=== PATIENT | female | born 1950 | race Native Hawaiian/Other Pacific Islander ===

== ENCOUNTER 2024-07-31 09:56 | Inpatient (IN) | payer OTHER ==
[~2024-07-31] VITALS: Ht 160 cm; Wt 74.0 kg
[2024-07-31 10:26] LABS: BASOPHILS % (AUTO) 0.7 % (0.0-2.0); EOSINOPHILS % (AUTO) 2.5 % (1.0-6.0); HEMATOCRIT 42.4 % (36-46); HEMOGLOBIN 13.3 g/dL (12.0-16.0); LYMPHOCYTES # (AUTO) 1.8 K/uL (1.0-4.8); LYMPHOCYTES % (AUTO) 32.9 % (22.0-44.0); MEAN CORPUSCULAR HEMOGLOBIN 25.6 pg (26.0-34.0); MEAN CORPUSCULAR HGB CONC 31.4 G/dL (31.0-37.0); MEAN CORPUSCULAR VOLUME 82 fL (80-100); MONOCYTES # (AUTO) 0.3 K/uL (0.1-1.0); MONOCYTES % (AUTO) 6.2 % (2.0-9.0); NEUTROPHILS # (AUTO) 3.1 K/uL (1.8-7.7); NEUTROPHILS % (AUTO) 57.7 % (40.0-70.0); PLATELET COUNT (AUTO) 203 K/uL (150-450); RED CELL DISTRIBUTION WIDTH 14.8 % (11.5-14.5); WHITE BLOOD COUNT (AUTO) 5.3 K/uL (4.5-11.0)
[2024-07-31 10:33] LABS: ANION GAP 9 mmol/L (8-16); CARBON DIOXIDE 24 mmol/L (22-29); CHLORIDE 102 mmol/L (98-107); CREATININE 1.31 mg/dL (0.60-1.30); GLOMERULAR FILTR. RATE CALC 39 mL/min (>60); GLUCOSE,RANDOM 362 mg/dL (70-110); POTASSIUM 4.6 mmol/L (3.5-5.1); SODIUM SERUM 135 mmol/L (136-145); UREA NITROGEN, BLOOD 21 mg/dL (7-18)
[2024-07-31] MEDS: ASPIRIN 325 MG TABLET PO ONE (10:39)
[2024-07-31] MEDS: CLOPIDOGREL BISULFATE 75 MG TABLET PO ONE (10:39)
[2024-07-31 10:42] LABS: ALANINE AMINOTRANSFERASE 22 U/L (12-78); ALBUMIN 3.2 g/dL (3.4-5.0); ALKALINE PHOSPHATASE 67 U/L (46-116); ASPARTATE AMINOTRANSFERASE 19 U/L (15-37); BILIRUBIN,TOTAL 0.5 mg/dL (0.1-1.0); TOTAL PROTEIN, SERUM 7.1 g/dL (6.4-8.2)
[2024-07-31 10:45] LABS: TROPONIN I-HIGH SENSITIVITY 241 ng/L (<51)
[2024-07-31] MEDS ORDERED: DABI150C2 PO (12:29)
[2024-07-31] MEDS ORDERED: ATOR40TA28 PO (12:29)
[2024-07-31] MEDS ORDERED: GLIP5TAB16 PO (12:29)
[2024-07-31] MEDS ORDERED: METF-1211 PO (12:29)
[2024-07-31] MEDS ORDERED: METO25 PO (12:29)
[2024-07-31] MEDS ORDERED: HYDR50TA36 PO (12:29)
[2024-07-31] MEDS ORDERED: ASPI-1450 PO (12:29)
[2024-07-31] MEDS: LORazepam 2 MG/ML VIAL IVP ONE ×2 (12:59→14:31)
[2024-07-31 13:10] LABS: APPEARANCE,URINE CLEAR (CLEAR); BILIRUBIN,URINE NEGATIVE (NEGATIVE); COLOR,URINE COLORLESS (YELLOW); GLUCOSE, URINE (UA) 300-500 mg/dL (NEGATIVE); KETONES,URINE NEGATIVE (NEGATIVE); LEUKOCYTE ESTERASE ,URINE SMALL (NEGATIVE); NITRATE,URINE NEGATIVE (NEGATIVE); OCCULT BLOOD,URINE NEGATIVE (NEGATIVE); PROTEIN,URINE 30-70 mg/dL (NEGATIVE); SPECIFIC GRAVITIY, URINE 1.013 (1.003-1.030); UROBILINOGEN,URINE <=1.0 mg/dL (<=1.0)
[2024-07-31] MEDS ORDERED: LOSARTAN POTASSIUM 50 MG TABLET PO ONE (13:15)
[2024-07-31] MEDS: HydrALAZINE HCL 25 MG TABLET PO ONE (13:24)
[2024-07-31] MEDS: HydrALAZINE HCL 20 MG/ML VIAL IVP ONE (13:24)
[2024-07-31 13:30] LABS: BACTERIA,URINE Many /HPF (None Seen); RBC,URINE 0-2 /HPF (0-2); SQUAMOUS EPITHELIAL CELL,UR Few /LPF (None Seen)
[2024-07-31 14:45] LABS: AMPHET/METH SCREEN,URINE NEGATIVE (NEGATIVE); BARBITURATE SCREEN, URINE NEGATIVE (NEGATIVE); BENZODIAZEPINES SCREEN,URINE NEGATIVE (NEGATIVE); CANNABINOID SCREEN,URINE NEGATIVE (NEGATIVE); COCAINE SCREEN,URINE NEGATIVE (NEGATIVE); METHADONE SCREEN, URINE NEGATIVE (NEGATIVE); OPIATE SCREEN,URINE NEGATIVE (NEGATIVE); PHENCYCLIDINE SCREEN,URINE NEGATIVE (NEGATIVE)
[2024-07-31 14:47] LABS: ALCOHOL, URINE DRUG SCREEN NEGATIVE (NEGATIVE)
[2024-07-31 15:56] LABS: TROPONIN I-HIGH SENSITIVITY 234 ng/L (<51)
[2024-07-31] MEDS ORDERED: HYDROCODONE/ACETAMINOPHEN 5-325 MG TABLET PO PRN (16:00)
[2024-07-31] MEDS ORDERED: MAGNESIUM HYDROXIDE SUSPENSION 30 ML UDCUP PO PRN (16:00)
[2024-07-31] MEDS ORDERED: BISACODYL 10 MG RECTAL RECTAL SUPPOSITORY PR PRN (16:00)
[2024-07-31] MEDS ORDERED: ZOLPIDEM TARTRATE 5 MG TABLET PO PRN (16:00)
[2024-07-31] MEDS ORDERED: ONDANSETRON HCL 4 MG/2 ML VIAL IVP PRN (16:00)
[2024-07-31] MEDS ORDERED: MORPHINE SULFATE 2 MG/ML SYRINGE IVP PRN (16:00)
[2024-07-31] MEDS ORDERED: ACETAMINOPHEN 325 MG TABLET PO PRN (16:00)
[2024-07-31] MEDS: GlipiZIDE 5 MG TABLET PO SCH (17:00)
[2024-07-31] MEDS: MetFORMIN HCL 500 MG TABLET PO SCH (18:00)
[2024-07-31] MEDS ORDERED: DABI110C PO (18:31)
[2024-07-31 19:23] VITALS: BP 182/72; PULSE 71; RESP 17; TEMP 97.8; O2SAT 97
[2024-07-31 20:50] VITALS: BP 122/75; PULSE 75; RESP 18; TEMP 97.9; O2SAT 97
[2024-07-31] MEDS: DOCUSATE SODIUM 100 MG CAPSULE PO SCH (21:00)
[2024-07-31] MEDS: HydrALAZINE HCL 50 MG TABLET PO SCH (21:00)
[2024-07-31] MEDS: ATORVASTATIN CALCIUM 40 MG TABLET PO SCH (21:00)
[2024-07-31] MEDS ORDERED: HydrALAZINE HCL 20 MG/ML VIAL IVP PRN (23:00)
[2024-08-01 00:34] VITALS: BP 151/86; PULSE 75; RESP 18; TEMP 97.8; O2SAT 94
[2024-08-01 05:29] VITALS: BP 158/90; PULSE 86; RESP 20; TEMP 98.7; O2SAT 96
[2024-08-01 06:00] LABS: BASOPHILS % (AUTO) 0.4 % (0.0-2.0); EOSINOPHILS % (AUTO) 0.6 % (1.0-6.0); HEMOGLOBIN 14.6 g/dL (12.0-16.0); LYMPHOCYTES # (AUTO) 1.7 K/uL (1.0-4.8); LYMPHOCYTES % (AUTO) 21.8 % (22.0-44.0); MEAN CORPUSCULAR HEMOGLOBIN 26.4 pg (26.0-34.0); MEAN CORPUSCULAR HGB CONC 32.5 G/dL (31.0-37.0); MEAN CORPUSCULAR VOLUME 81 fL (80-100); MONOCYTES # (AUTO) 0.5 K/uL (0.1-1.0); MONOCYTES % (AUTO) 7.1 % (2.0-9.0); NEUTROPHILS # (AUTO) 5.5 K/uL (1.8-7.7); NEUTROPHILS % (AUTO) 70.1 % (40.0-70.0); PLATELET COUNT (AUTO) 226 K/uL (150-450); RED BLOOD CELL COUNT(AUTO) 5.54 MIL/uL (4.00-5.20); RED CELL DISTRIBUTION WIDTH 13.9 % (11.5-14.5); WHITE BLOOD COUNT (AUTO) 7.8 K/uL (4.5-11.0)
[2024-08-01 06:27] LABS: ANION GAP 14 mmol/L (8-16); CALCIUM, TOTAL 9.2 mg/dL (8.8-10.5); CARBON DIOXIDE 23 mmol/L (22-29); CHLORIDE 100 mmol/L (98-107); CHOL/HDL RATIO 2.8 (3.9-5.7); CHOLESTEROL 225 mg/dL (131-200); CREATININE 1.31 mg/dL (0.60-1.30); GLOMERULAR FILTR. RATE CALC 39 mL/min (>60); GLUCOSE,RANDOM 236 mg/dL (70-110); HDL CHOLESTEROL 81 mg/dL (40-60); LDL CHOL (CALC.) 113 mg/dL (0-130); SODIUM SERUM 137 mmol/L (136-145); THYROID STIMULATING HORMONE 0.88 uIU/mL (0.36-3.74); TRIGLYCERIDES 155 mg/dL (15-150); UREA NITROGEN, BLOOD 17 mg/dL (7-18)
[2024-08-01 06:32] LABS: TROPONIN I-HIGH SENSITIVITY 361 ng/L (<51)
[2024-08-01 07:48] VITALS: BP 147/97; PULSE 74; RESP 18; TEMP 98.3; O2SAT 97
[2024-08-01] MEDS: PRADAXA 110 MG PO SCH (09:00)
[2024-08-01 11:40] LABS: GLUCOMETER DEV NAME(LOC) 5S.2D; GLUCOSE,POINT OF CARE 279 MG/DL (70-110)
[2024-08-01 12:00] VITALS: BP 129/81; PULSE 75; RESP 19; TEMP 98.2; O2SAT 98
[2024-08-01] MEDS: ASPIRIN 81 MG CHEWABLE TABLET PO SCH (12:30)
[2024-08-01] MEDS: PANTOPRAZOLE SODIUM 40 MG DR TABLET PO SCH (12:30)
[2024-08-01] MEDS ORDERED: SODIUM CHLORIDE 0.9% 500 ML IV ONE (13:01)
[2024-08-01] MEDS: CefTRIAXone 1 GM/DEXTROSE 50 ML IV SCH (13:17)
[2024-08-01 15:30] VITALS: BP 132/78; PULSE 72; RESP 18; TEMP 98; O2SAT 97
[2024-08-01 18:36] LABS: GLUCOMETER DEV NAME(LOC) 5N.1D; GLUCOSE,POINT OF CARE 340 MG/DL (70-110)
[2024-08-01] MEDS ORDERED: DEXTROSE 50%-WATER 25 GM/50 ML SYRINGE IVP PRN (18:45)
[2024-08-01] MEDS: INSULIN LISPRO 100 UNITS/ML SQ PRN (19:02)
[2024-08-01 21:00] VITALS: BP 149/74; PULSE 71; RESP 18; TEMP 97.9; O2SAT 95
[2024-08-02 05:17] VITALS: BP 123/62; PULSE 62; RESP 18; TEMP 97.8; O2SAT 98
[2024-08-02 05:51] LABS: GLUCOMETER DEV NAME(LOC) 5S.2D; GLUCOSE,POINT OF CARE 221 MG/DL (70-110)
[2024-08-02 06:28] LABS: BASOPHILS % (AUTO) 0.4 % (0.0-2.0); EOSINOPHILS % (AUTO) 2.4 % (1.0-6.0); HEMATOCRIT 42.1 % (36-46); HEMOGLOBIN 13.5 g/dL (12.0-16.0); LYMPHOCYTES # (AUTO) 2.2 K/uL (1.0-4.8); LYMPHOCYTES % (AUTO) 30.4 % (22.0-44.0); MEAN CORPUSCULAR HEMOGLOBIN 26.1 pg (26.0-34.0); MEAN CORPUSCULAR HGB CONC 32.1 G/dL (31.0-37.0); MEAN CORPUSCULAR VOLUME 81 fL (80-100); MONOCYTES # (AUTO) 0.7 K/uL (0.1-1.0); MONOCYTES % (AUTO) 10.3 % (2.0-9.0); NEUTROPHILS % (AUTO) 56.5 % (40.0-70.0); PLATELET COUNT (AUTO) 190 K/uL (150-450); RED BLOOD CELL COUNT(AUTO) 5.19 MIL/uL (4.00-5.20); RED CELL DISTRIBUTION WIDTH 14.6 % (11.5-14.5); WHITE BLOOD COUNT (AUTO) 7.2 K/uL (4.5-11.0)
[2024-08-02 06:38] LABS: ANION GAP 11 mmol/L (8-16); CALCIUM, TOTAL 9.1 mg/dL (8.8-10.5); CARBON DIOXIDE 24 mmol/L (22-29); CHLORIDE 102 mmol/L (98-107); CREATININE 1.44 mg/dL (0.60-1.30); GLOMERULAR FILTR. RATE CALC 35 mL/min (>60); GLUCOSE,RANDOM 154 mg/dL (70-110); POTASSIUM 3.7 mmol/L (3.5-5.1); SODIUM SERUM 137 mmol/L (136-145); UREA NITROGEN, BLOOD 24 mg/dL (7-18)
[2024-08-02 07:25] VITALS: BP 133/72; PULSE 70; RESP 18; TEMP 97.7; O2SAT 97
[2024-08-02 08:00] LABS: GLUCOMETER DEV NAME(LOC) 5N.1D; GLUCOSE,POINT OF CARE 158 MG/DL (70-110)
[2024-08-02 09:28] LABS: TROPONIN I-HIGH SENSITIVITY 327 ng/L (<51)
[2024-08-02 10:12] LABS: TROPONIN I-HIGH SENSITIVITY 397 ng/L (<51)
[2024-08-02 11:30] VITALS: BP 119/66; PULSE 77; RESP 18; TEMP 97.6; O2SAT 97
[2024-08-02 14:01] LABS: GLUCOMETER DEV NAME(LOC) 5S.2D; GLUCOSE,POINT OF CARE 242 MG/DL (70-110)
[2024-08-02 15:49] VITALS: BP 140/78; PULSE 65; RESP 18; TEMP 97.9; O2SAT 96
[2024-08-02 20:05] LABS: GLUCOMETER DEV NAME(LOC) 5N.1D; GLUCOSE,POINT OF CARE 137 MG/DL (70-110)
[2024-08-02 20:36] VITALS: BP 163/96; PULSE 69; RESP 18; TEMP 97.8; O2SAT 94
[2024-08-03 00:39] VITALS: BP 130/74; PULSE 78; RESP 18; TEMP 97.9; O2SAT 98
[2024-08-03 05:10] VITALS: BP 133/84; PULSE 70; RESP 19; TEMP 97.8; O2SAT 96
[2024-08-03 08:00] VITALS: BP 120/76; PULSE 81; RESP 18; TEMP 98.3; O2SAT 98
[2024-08-03 08:35] LABS: GLUCOMETER DEV NAME(LOC) 5N.1D; GLUCOSE,POINT OF CARE 161 MG/DL (70-110)
[2024-08-03 08:35] LABS: GLUCOMETER DEV NAME(LOC) 5N.1D; GLUCOSE,POINT OF CARE 213 MG/DL (70-110)
[2024-08-03 11:35] LABS: GLUCOMETER DEV NAME(LOC) 5N.1D; GLUCOSE,POINT OF CARE 293 MG/DL (70-110)
[2024-08-03 12:13] VITALS: BP 157/75; PULSE 74; RESP 16; TEMP 98.2; O2SAT 98
[2024-08-03] MEDS ORDERED: CEPH-558 PO (13:38)
== END 2024-08-03 15:00 | disposition home or self-care (01) | DRG 305 ==
LOC: EMS 10:01 → EDH 12:19 → 5S 17:22
PROVIDERS: ADMIT Internal Medicine; ATTEND Internal Medicine
DX: I16.1 Hypertensive emergency (principal); G45.9 Transient cerebral ischemic attack, unspecified; E87.1 Hypo-osmolality and hyponatremia; E44.0 Moderate protein-calorie malnutrition; N17.9 Acute kidney failure, unspecified; G81.91 Hemiplegia, unspecified affecting right dominant side; N39.0 Urinary tract infection, site not specified; R00.1 Bradycardia, unspecified; R79.89 Other specified abnormal findings of blood chemistry; E11.9 Type 2 diabetes mellitus without complications; E78.5 Hyperlipidemia, unspecified; N28.9 Disorder of kidney and ureter, unspecified; I48.0 Paroxysmal atrial fibrillation; I10 Essential (primary) hypertension; I25.10 Atherosclerotic heart disease of native coronary artery without angina pectoris; Z95.1 Presence of aortocoronary bypass graft; Z79.02 Long term (current) use of antithrombotics/antiplatelets; Z79.82 Long term (current) use of aspirin; Z79.84 Long term (current) use of oral hypoglycemic drugs; Z79.899 Other long term (current) drug therapy; Z68.28 Body mass index [BMI] 28.0-28.9, adult
CPT/HCPCS: 70496; 70498; 71045; 80048; 80053; 80061; 80307; 81001; 82948; 82962; 83036; 84443; 84484; 85025; 85610; 85730; 86850; 86900; 86901; 87077; 87086; 87186; 93005; 93306; 93880; 96374; 96375; 96376; 97116; 97163; 97167; 97530; 97535; 99291; J0360; J0696; J2060; J7040; 36415-L1; 36415-TC; 70450; 70450-TC